=== PATIENT | female | born 1940 | race Caucasian/White ===

== ENCOUNTER 2018-04-10 08:00 | Day surgery (SDC) | payer OTHER, SELFPAY ==
[~2018-04-10] VITALS: Ht 157.5 cm; Wt 66.4 kg
[~2018-04-10 08:00] MED LIST: ABAC300; ACET325 PO; AMLO5 PO; ASPI81EC PO; BRIM.15SO BOTHEYES; CHOL10002 PO; CLON.1 PO; ERGO50000 PO; FISH1000 PO; FURO20 PO; FURO40 PO; HYDACE5 PO; HYDR10 PO; Klor-Con 1010 MEQ PO; LEVFLO250 PO; LISHYD2012 PO; LISI20 PO; LOSA50 PO; LOSHYD PO; LOVA40 PO; LUTEIN1 GM PO; MELA3 PO; METF500 PO; NIFE60ER PO; POTA10T PO; PROACE100 PO; TRAM50 PO
== END 2018-04-10 11:45 | disposition home or self-care (01) ==
LOC: ORSCSDS 08:00
PROVIDERS: Orthopaedic Surgery
PROC: 01N40ZZ Release Ulnar Nerve, Open Approach (ICD-10-PCS; principal; 2018-04-10 09:15)
DX: G56.22 Lesion of ulnar nerve, left upper limb (principal); I10 Essential (primary) hypertension; E11.9 Type 2 diabetes mellitus without complications; E78.00 Pure hypercholesterolemia, unspecified; Z95.0 Presence of cardiac pacemaker; Z79.899 Other long term (current) drug therapy; Z79.82 Long term (current) use of aspirin
CPT/HCPCS: 82947; J0690; J2250; J3010; J7120

== ENCOUNTER 2018-08-01 08:06 | Emergency (ER) | payer OTHER ==
[~2018-08-01] VITALS: Ht 160 cm; Wt 65.8 kg
[2018-08-01] MEDS ORDERED: Metformin HCl500 MG (08:27)
[2018-08-01] MEDS ORDERED: METO25ER (08:27)
[2018-08-01 08:52] LABS: BASOPHILS ABSOLUTE AUTO 0.05 K/mm3 (0.00-0.23); BASOPHILS PERCENT AUTO 1 % (0-2); EOSINOPHILS ABSOLUTE AUTO 0.12 K/mm3 (0.00-0.68); EOSINOPHILS PERCENT AUTO 2 % (0-6); Hematocrit 39.4 % (33.0-51.0); Hemoglobin 12.9 g/dL (11.5-16.0); IMMATURE GRAN ABSOLUTE AUTO 0.01 K/mm3 (0.00-0.10); IMMATURE GRAN PERCENT AUTO 0 % (0-1); LYMPHOCYTES ABSOLUTE AUTO 2.02 K/mm3 (0.84-5.20); LYMPHOCYTES PERCENT AUTO 29 % (21-46); MONOCYTES ABSOLUTE AUTO 0.69 K/mm3 (0.16-1.47); MONOCYTES PERCENT AUTO 10 % (4-13); Mean Corpuscular HGB 30.3 pg (26.0-34.0); Mean Corpuscular HGB Conc 32.7 g/dL (31.5-36.5); Mean Corpuscular Volume 93 fL (80-100); Mean Platelet Volume 9.9 fL (9.1-12.4); NEUTROPHILS ABSOLUTE AUTO 4.16 K/mm3 (1.96-9.15); NEUTROPHILS PERCENT AUTO 59 % (41-73); Platelet Count 237 K/mm3 (150-400); RDW Coefficient Variation 13.4 % (11.7-14.2); RDW Standard Deviation 45.4 fL (35.1-46.3); Red Blood Cell Count 4.26 M/mm3 (3.80-5.20); White Blood Cell Count 7.05 K/mm3 (4.00-11.30)
[2018-08-01 09:00] LABS: Anion Gap 7 mmol/L (6-16); Blood Urea Nitrogen 16 mg/dL (8-24); Bun/Creatinine Ratio 22.1 (12.0-20.0); CO2, Blood 27 mmol/L (21-32); Calcium, Blood 8.5 mg/dL (8.5-10.1); Chloride, Blood 106 mmol/L (98-108); Creatinine, Blood 0.72 mg/dL (0.40-1.00); Glomerular Filtration Rate >60 (60-); Glucose, Blood 111 mg/dL (70-99); Potassium, Blood 3.6 mmol/L (3.5-5.5); Sodium, Blood 140 mmol/L (136-145)
[2018-08-01] MEDS ORDERED: Motion Sickness25 M1 PO (09:48)
== END 2018-08-01 10:18 | disposition home or self-care (01) ==
LOC: ER 08:06
PROVIDERS: Emergency Medicine
DX: H81.10 Benign paroxysmal vertigo, unspecified ear (principal); E11.9 Type 2 diabetes mellitus without complications; I10 Essential (primary) hypertension; Z88.5 Allergy status to narcotic agent; Z88.8 Allergy status to other drugs, medicaments and biological substances; Z79.84 Long term (current) use of oral hypoglycemic drugs; Z79.899 Other long term (current) drug therapy; Z86.73 Personal history of transient ischemic attack (TIA), and cerebral infarction without residual deficits
CPT/HCPCS: 70450; 80048; 85025; 93005; 93010; 99284-25

== ENCOUNTER → 2019-04-06 | Outpatient (CLI) | payer OTHER ==
[~2019-04-06] MED LIST changes: +METO25ER; +Metformin HCl500 MG; +Motion Sickness25 M1 PO
== END | disposition home or self-care (01) ==
LOC: LAB SHORT 11:32 → PLD 11:32
DX: D04.62 Carcinoma in situ of skin of left upper limb, including shoulder (principal); C44.41 Basal cell carcinoma of skin of scalp and neck
CPT/HCPCS: 88305

== ENCOUNTER → 2019-04-13 | Outpatient (CLI) | payer OTHER | END | disposition home or self-care (01) | LOC: LAB SHORT 09:29 → PLD 09:29 | DX: C44.41 Basal cell carcinoma of skin of scalp and neck (principal) | CPT/HCPCS: 88305 ==

== ENCOUNTER → 2019-04-23 | Outpatient (CLI) | payer OTHER | END | disposition home or self-care (01) | LOC: PLD 13:18 → LAB SHORT 13:18 | DX: C44.41 Basal cell carcinoma of skin of scalp and neck (principal) | CPT/HCPCS: 88305 ==

== ENCOUNTER → 2020-01-11 | Outpatient (CLI) | payer OTHER | END | disposition home or self-care (01) | LOC: LAB SHORT 11:57 → LAB 11:57 | DX: C44.319 Basal cell carcinoma of skin of other parts of face (principal) | CPT/HCPCS: 88305 ==

== ENCOUNTER → 2020-04-05 | Outpatient (CLI) | payer OTHER | END | disposition home or self-care (01) | LOC: LAB 07:41 → LAB SHORT 07:41 | DX: C44.310 Basal cell carcinoma of skin of unspecified parts of face (principal); D48.5 Neoplasm of uncertain behavior of skin | CPT/HCPCS: 88305 ==

== ENCOUNTER → 2021-11-01 | Outpatient (CLI) | payer OTHER | END | disposition home or self-care (01) | LOC: LAB SHORT 10:45 → PLD 10:45 | DX: D48.5 Neoplasm of uncertain behavior of skin (principal) | CPT/HCPCS: 88305 ==

== ENCOUNTER → 2022-05-03 | Outpatient (CLI) | payer OTHER | END | disposition home or self-care (01) | LOC: LAB 11:16 → LAB SHORT 11:16 | DX: C44.41 Basal cell carcinoma of skin of scalp and neck (principal) | CPT/HCPCS: 88305 ==

== ENCOUNTER → 2023-06-04 | Outpatient (CLI) | payer OTHER | LOC: LAB SHORT 11:36 → PLD 11:36 | DX: D48.5 Neoplasm of uncertain behavior of skin (principal) | CPT/HCPCS: 88305 ==

== ENCOUNTER 2023-10-26 12:10 | Emergency (ER) | payer OTHER ==
[~2023-10-26] VITALS: Ht 154.9 cm; Wt 61.2 kg
[2023-10-26 12:50] LABS: BASOPHILS ABSOLUTE AUTO 0.04 K/mm3 (0.00-0.23); BASOPHILS PERCENT AUTO 1 % (0-2); EOSINOPHILS ABSOLUTE AUTO 0.11 K/mm3 (0.00-0.68); EOSINOPHILS PERCENT AUTO 1 % (0-6); Hematocrit 30.9 % (33.0-51.0); Hemoglobin 9.9 g/dL (11.5-16.0); IMMATURE GRAN ABSOLUTE AUTO 0.04 K/mm3 (0.00-0.10); IMMATURE GRAN PERCENT AUTO 1 % (0-1); LYMPHOCYTES ABSOLUTE AUTO 1.47 K/mm3 (0.84-5.20); LYMPHOCYTES PERCENT AUTO 18 % (21-46); MONOCYTES ABSOLUTE AUTO 0.71 K/mm3 (0.16-1.47); MONOCYTES PERCENT AUTO 9 % (4-13); Mean Corpuscular HGB 26.1 pg (26.0-34.0); Mean Corpuscular Volume 82 fL (80-100); Mean Platelet Volume 9.6 fL (9.1-12.4); NEUTROPHILS ABSOLUTE AUTO 5.92 K/mm3 (1.96-9.15); NEUTROPHILS PERCENT AUTO 71 % (41-73); Platelet Count 319 K/mm3 (150-400); RDW Coefficient Variation 15.8 % (11.7-14.2); RDW Standard Deviation 46.6 fL (35.1-46.3); Red Blood Cell Count 3.79 M/mm3 (3.80-5.20); White Blood Cell Count 8.29 K/mm3 (4.00-11.30)
[2023-10-26 13:06] LABS: Albumin, Blood 3.4 g/dL (3.4-5.0); Albumin/Globulin Ratio 1.1 (0.8-1.8); Bilirubin, Total 0.5 mg/dL (0.1-1.0); Bun/Creatinine Ratio 20.9 (12.0-20.0); Calcium, Blood 9.1 mg/dL (8.5-10.1); Creatinine, Blood 0.96 mg/dL (0.40-1.00); Globulin, Blood 3.1 g/dL (2.2-4.0); Magnesium, Blood 2.2 mg/dL (1.6-2.4); Potassium, Blood 4.4 mmol/L (3.5-5.5); Total Protein, Blood 6.5 g/dL (6.4-8.2)
[2023-10-26 14:02] VITALS: BP 115/52
== END 2023-10-26 14:30 | disposition home or self-care (01) ==
LOC: ER 12:10
PROVIDERS: Physician Assistant
DX: R55 Syncope and collapse (principal); D64.9 Anemia, unspecified; E11.9 Type 2 diabetes mellitus without complications; I10 Essential (primary) hypertension; I48.91 Unspecified atrial fibrillation; Z88.5 Allergy status to narcotic agent; Z79.899 Other long term (current) drug therapy; Z79.84 Long term (current) use of oral hypoglycemic drugs
CPT/HCPCS: 80053; 82272; 83735; 85025; 99284-25

== ENCOUNTER → 2024-05-11 | Outpatient (CLI) | payer OTHER ==
[2024-05-12 11:19] LABS: Stool Occult Bld Immuno 1 Positive (NEGATIVE)
== END ==
LOC: LAB SHORT 14:16 → LAB 14:16
PROVIDERS: Internal Medicine
DX: D53.9 Nutritional anemia, unspecified (principal)
CPT/HCPCS: G0328

== ENCOUNTER 2025-06-23 06:59 | Day surgery (SDC) | payer OTHER ==
[~2025-06-23] VITALS: Ht 157.5 cm; Wt 55.8 kg
[2025-06-23] VITALS (11 sets, daily range): BP systolic 136–173; BP diastolic 61–76
[2025-06-23] MEDS ORDERED: ATOR40TA PO (07:23)
[2025-06-23] MEDS ORDERED: ELIQUIS5 M2 (07:23)
[2025-06-23] MEDS ORDERED: Alphagan P5 ML BOTHEYES (07:24)
[2025-06-23] MEDS ORDERED: Vitamin D1000 UNI1 (07:25)
[2025-06-23] MEDS ORDERED: KETO.5OPSO BOTHEYES (07:35)
[2025-06-23] MEDS ORDERED: CeFAZolin Sodium 1000 mg Vial ONE ×2 (07:38→07:53)
[2025-06-23] MEDS ORDERED: NS 1,000 ML IV ONE ×2 (07:39→07:54)
[2025-06-23] MEDS ORDERED: Heparin Sodium 1000 Units/ML 10ML MDV ONE ×2 (07:39→08:14)
[2025-06-23] MEDS ORDERED: Midazolam HCl 1MG / ML 2ML Vial ONE (07:53)
[2025-06-23] MEDS ORDERED: FentaNYL Citrate 50 MCG/ML 2 ML Injection ONE ×2 (07:53→09:04)
[2025-06-23] MEDS ORDERED: NS 50 ML IV ONE (07:54)
[2025-06-23] MEDS ORDERED: NS 250 ML IV ONE (08:14)
--- NOTE | 2025-06-23 09:55 | NUR ---
PT BACK TO RECOVERY ROOM. PT HAD DRESSING TO R IJ, CLEAN, DRY AND INTACT, DRESSING TO L CHEST HAS SMALL AMOUNT OF BLOOD SPOT, NO SWELLING. ICE PACK PLACED TO SURGICAL SITE. PT ALERT AND ORIENTED. GRANDDAUGHTER AT BEDSIDE.
--- NOTE | 2025-06-23 10:57 | NUR ---
PT TO IMAGING. FOR CHEST XRAY
== END 2025-06-23 12:30 | disposition home or self-care (01) ==
LOC: MHTC 06:59
DX: Z45.010 Encounter for checking and testing of cardiac pacemaker pulse generator [battery] (principal); I48.91 Unspecified atrial fibrillation; I65.23 Occlusion and stenosis of bilateral carotid arteries; I10 Essential (primary) hypertension; I65.29 Occlusion and stenosis of unspecified carotid artery; I49.5 Sick sinus syndrome; E78.5 Hyperlipidemia, unspecified; Z79.01 Long term (current) use of anticoagulants; Z79.82 Long term (current) use of aspirin; Z79.899 Other long term (current) drug therapy; Z88.5 Allergy status to narcotic agent; Z88.8 Allergy status to other drugs, medicaments and biological substances
CPT/HCPCS: 33210; 33228; 71045; 99152; 99153; C1785; C1894; J0690; J1644; J2250; J3010; J7030; J7040; J7050